=== PATIENT | female | born 1985 | race Caucasian/White ===

== ENCOUNTER 2025-03-02 16:55 | Emergency (ER) | payer OTHER ==
[~2025-03-02] VITALS: Ht 162.6 cm; Wt 67.0 kg
[2025-03-02] MEDS: NS (Normal Saline) 0.9% 1,000 ML IV ONE ×2 (17:25→19:25)
[2025-03-02] MEDS ORDERED: ISOVUE-370 76% 100 ML VIAL As Ordered ONE (17:49)
[2025-03-02 18:59] LABS: BASO # 0.0 10^3/uL (0.0-0.2); BASO % 0.2 % (0.0-1.0); EOS # 0.0 10^3/uL (0.0-0.5); EOS % 0.1 % (0.0-3.0); LYMPH # 0.7 10^3/uL (1.5-5.0); LYMPH % 3.6 % (24.0-44.0); MONO # 1.0 10^3/uL (0.0-0.8); MONO % 5.6 % (2.0-8.0); NEUTROPHILS # 16.2 10^3/uL (1.5-8.5); NEUTROPHILS % 89.9 % (36.0-66.0); PLATELET COUNT, AUTOMATED 232 10^3/uL (150-450)
[2025-03-02 19:23] LABS: ETHYL ALCOHOL (ETHANOL) 0.010 % (0.000-0.010)
[2025-03-02 19:25] LABS: ALT/SGPT 42 U/L (7.0-40); AST/SGOT 52 U/L (<34); CALCIUM LEVEL 8.3 MG/DL (8.5-10.1); CARBON DIOXIDE LEVEL 25 MMOL/L (20-31); CHLORIDE LEVEL 104 MMOL/L (98-107); CREATININE FOR GFR 0.70 MG/DL (0.55-1.30); GLOMERULAR FILTRATION RATE > 90.0 (>60); POTASSIUM SERUM 4.5 MMOL/L (3.5-5.1); SODIUM LEVEL 137 MMOL/L (136-145)
[2025-03-02 19:29] LABS: INR 1.05
[2025-03-02] MEDS: NS (Normal Saline) 0.9% 1,000 ML IV SCH (20:13)
[2025-03-02 20:30] VITALS: TEMP 97.8
[2025-03-02 20:48] VITALS: BP 105/70; O2SAT 97
== END 2025-03-02 21:38 | disposition short-term general hospital (02) ==
LOC: EDBD 16:55 → M ED 16:55
DX: S72.392A Other fracture of shaft of left femur, initial encounter for closed fracture (principal); S32.028A Other fracture of second lumbar vertebra, initial encounter for closed fracture; S32.038A Other fracture of third lumbar vertebra, initial encounter for closed fracture; S32.048A Other fracture of fourth lumbar vertebra, initial encounter for closed fracture; V86.52XA Driver of snowmobile injured in nontraffic accident, initial encounter; Y92.89 Other specified places as the place of occurrence of the external cause; Y93.89 Activity, other specified; Y99.9 Unspecified external cause status; K59.00 Constipation, unspecified; Z97.5 Presence of (intrauterine) contraceptive device
CPT/HCPCS: 70450; 71045; 71260; 72125; 72128; 72131; 73502; 73552; 73564; 73590; 74177; 80047; 80048; 80076; 82077; 82150; 83605; 83690; 85025; 85610; 85730; 86850; 86900; 86901; 93005; 93041; 94760; 96374; 96376; 99285; J3010; Q9967